=== PATIENT | male | born 1990 | race Caucasian/White ===

== ENCOUNTER → 2017-04-20 | Outpatient (CLI) | payer BC ==
--- NOTE | 2017-04-20 15:17 | CT ---
EXAMINATION TYPE: CT abdomen pelvis wo con DATE OF EXAM: 04/20/2017 COMPARISON: NONE HISTORY: Hematuria CT DLP: 740 mGycm Automated exposure control for dose reduction was used. TECHNIQUE: Helical acquisition of images was performed from the lung bases through the pelvis. FINDINGS: LUNG BASES: Lower lobe calcified granuloma. LIVER/GB: No significant abnormality is appreciated. PANCREAS: No significant abnormality is seen. SPLEEN: No significant abnormality is seen. ADRENALS: No significant abnormality is seen. KIDNEYS: No hydronephrosis, nephrolithiasis or acute process. There is mild pelvic caliectasis and pr ominence the right ureter. FREE AIR: No free air is visualized RETROPERITONEAL ADENOPATHY: None visualized URINARY BLADDER: No significant abnormality is seen. PELVIC ADENOPATHY: Shotty adenopathy in the right lower quadrant and upper pelvis with no pathologic adenopathy seen. OSSEOUS STRUCTURES: No significant abnormality is seen. BOWEL: No significant abnormality is seen. Appendix normal. OTHER: Aorta of normal caliber. No free fluid or free air. IMPRESSION: MILD RIGHT PELVOCALIECTASIS AND MILD PROMINENCE OF THE RIGHT URETER WHICH MAY BE SECONDARY TO INFECTI ON OR RECENTLY PASSED STONE CORRELATE CLINICALLY. NO NEPHROLITHIASIS ON TODAY'S EXAM. LEFT LOWER LOBE CALCIFIED GRANULOMA.
== END | disposition home or self-care (01) ==
LOC: RADCTMAIN 14:10
PROVIDERS: ATTEND Family Medicine
DX: N13.30 Unspecified hydronephrosis (principal); N28.89 Other specified disorders of kidney and ureter; R31.9 Hematuria, unspecified
CPT/HCPCS: 74176